=== PATIENT | female | born 1950 | race Caucasian/White ===

== ENCOUNTER 2017-07-12 04:59 | Inpatient (IN) | payer OTHER ==
--- NOTE | 2017-06-20 11:11 | PAT Medication Instructions ---
Service Date Jun 20, 2017. Current Home Medication List Cholecalciferol (Vitamin D3), 1 CAP PO QAM Levothyroxine Sodium (Levothyroxine Sodium), 1 TAB PO QAM Multivitamin (Multivitamin), 1 TAB PO QAM Naproxen (Aleve), 220 MG PO DAILY PRN for Pain Omeprazole (Prilosec), 40 MG PO QAM Rosuvastatin Calcium (Crestor), 10 MG PO HS Medication Instructions For Your Scheduled Surgery - Hold the following medications 10 days prior to surgery per surgeon's instructions: Naproxen (Aleve), 220 MG PO DAILY PRN for Pain - Hold the following medications the morning of surgery: Cholecalciferol (Vitamin D3), 1 CAP PO QAM Multivitamin (Multivitamin), 1 TAB PO QAM - Take the following medications the morning of surgery with a sip of water OTHERWISE NOTHING TO EAT OR DRINK AFTER MIDNIGHT: Omeprazole (Prilosec), 40 MG PO QAM Levothyroxine Sodium (Levothyroxine Sodium), 1 TAB PO QAM Tylenol (as needed; up to 4 hours prior to surgery) - Take the following medications as scheduled the night before surgery: Rosuvastatin Calcium (Crestor), 10 MG PO HS Tylenol If you have any questions please call us at [phone] or [phone] or [phone]
[2017-06-20 12:12] LABS: BASO % 0.6 %; BASO ABS # 0.04 K/uL (0-0.2); COMPLETE YES; EOS % 1.1 %; HEMATOCRIT 40.4 % (37-47); IG% 0.2 %; LYMPH % 29.8 %; MEAN CELL VOLUME 88.8 fL (80-100); MEAN CORPUSCULAR HGB CONC 32.7 g/dl (32-36); MEAN PLATELET VOLUME 9.7 fL (7.4-10.4); MONO % 7.4 %; NEUT % 60.9 %; PLATELET COUNT 302 K/uL (130-400); RED BLOOD COUNT 4.55 M/uL (4.2-5.4); WHITE BLOOD COUNT 6.38 K/uL (4.8-10.8)
--- NOTE | 2017-06-20 12:13 | DIAGNOSTIC IMAGING REPORT ---
CHEST 2 VIEWS ROUTINE CLINICAL HISTORY: 66 years-old Female presenting with preoperative. TECHNIQUE: PA and lateral views of the chest were obtained. COMPARISON: 04/26/2016. FINDINGS: Cardiomediastinal silhouette normal. Few punctate calcified granulomas may be present. Lungs and pleural spaces clear. Osseous structures normal. Upper abdomen normal. IMPRESSION: 1. No acute cardiopulmonary disease. Electronically signed by: Ignacio King M.D. 06/20/2017 12:12 PM Dictated Date/Time: 06/20/2017 12:11 PM
[2017-06-20 12:25] LABS: PROTHROMBIN TIME (PATIENT) 10.3 SECONDS (9.0-12.0)
[2017-06-20 13:27] LABS: BLOOD UREA NITROGEN 19 mg/dl (7-18); BUN/CREATININE RATIO 28.5 (10-20); C-REACTIVE PROTEIN < 0.29 mg/dl (0-0.29); CALCIUM 9.3 mg/dl (8.5-10.1); CARBON DIOXIDE 27 mmol/L (21-32); CHLORIDE 106 mmol/L (98-107); CREATININE 0.65 mg/dl (0.60-1.20); GLUCOSE 97 mg/dl (70-99); POTASSIUM 4.2 mmol/L (3.5-5.1); SODIUM 140 mmol/L (136-145)
--- NOTE | 2017-07-07 07:54 | HISTORY & PHYSICAL EXAMINATION ---
DATE OF ADMISSION: 07/12/2017 CHIEF COMPLAINT: Left hip pain. HISTORY OF PRESENT ILLNESS: The patient is a 66-year-old female little over a year out from a right hip replacement, presents for treatment of her left hip. She has got a fairly long several year history of increasing left hip pain and discomfort that has gotten significantly worse over the past year. She has difficulty walking any distance. She describes groin pain and thigh pain. She takes some anti-inflammatories which takes the edge off but that is about it. She would like to have her left hip replaced. PAST MEDICAL HISTORY: 1. Elevated cholesterol. 2. Hypothyroidism. 3. Gastroesophageal reflux disease. 4. Glaucoma. PAST SURGICAL HISTORY: Include: 1. Right hip replacement done May 2016. 2. Trabeculectomy of her eye in December 2016 for glaucoma. ALLERGIES: None. MEDICATIONS: Include rosuvastatin, levothyroxine, unspecified medicine for GERD, most likely omeprazole. SOCIAL HISTORY: A 66-year-old female. She is . She is from [place]. Does not smoke. FAMILY HISTORY: Noncontributory. REVIEW OF SYSTEMS: Negative for diabetes, neurologic problems, vascular problems, bleeding disorders. Denies any chest pain, no shortness of breath. No history of DVT or PE. PHYSICAL EXAMINATION: GENERAL: Reveals a healthy pleasant elderly female. She looks to be in reasonably good health. HEAD, EYES, EARS, NOSE, AND THROAT EXAMINATION: Benign. NECK: Supple. No lymphadenopathy. LUNGS: Clear to auscultation. HEART: Has a regular rate and rhythm. ABDOMEN: Soft, nontender, nondistended. EXTREMITY EXAMINATION: Grossly neurovascularly intact except as follows: Examination of the left hip reveals the patient walks with a significant limp. Leg lengths clinically appear pretty equal. She has pain with any type of hip motion. Internal rotation is neutral. External rotation to 20 degrees. Negative straight leg raise. X-RAYS: X-rays of the left hip reveal fairly concentric left hip arthritis. She has got cystic changes in the femoral head and acetabulum. She has got osteophytes around the acetabulum and femoral head area. ASSESSMENT: A 66-year-old white female little over a year out from right hip replacement, doing well with advanced left hip degenerative joint disease. She would like to have her left hip replaced. PLAN: We will take her to the operating room and do a left total hip replacement. The risks and benefits of this procedure were explained to the patient including but not limited to DVT, PE, , infection, neurological injury, vascular injury, bleeding problem, pain, limited range of motion, stiffness, failure to relieve symptoms, incomplete relief of symptoms, need for further surgery in the future, fracture, leg length inequality, nerve palsy, dislocation, need for blood transfusion, etc. The patient understands and desires to proceed. Informed consent was obtained. As far as discharge plans, she is planning to be discharged to home using [facility] home health program but her can assist in her care.
[~2017-07-12] VITALS: Ht 160 cm; Wt 78.2 kg
[2017-07-12] VITALS (17 sets, daily range): BP systolic 100–172; BP diastolic 62–82; PULSE 60–76; TEMP 36.4–37; O2SAT 95–97; Ht 160 cm; Wt 78.2 kg
[~2017-07-12 04:59] MED LIST: CHOL2000 PO; CRS/10 PO; LEVO137T3 PO; MULT-506 PO; NAPR1TAB9 PO; OMEP40CA PO
[2017-07-12] MEDS ORDERED: ACET-1256 PO (05:49)
[2017-07-12] MEDS ORDERED: LACTATED RINGER'S 1000ML 500 ML IV ONE (06:00)
[2017-07-12] MEDS ORDERED: LACTATED RINGER'S 1000ML 1,000 ML IV SCH (06:00)
[2017-07-12] MEDS ORDERED: ACETAMINOPHEN 500 MG TAB PO SCH (06:00)
[2017-07-12] MEDS ORDERED: METOCLOPRAMIDE HCL 10 MG TAB PO SCH (06:00)
[2017-07-12] MEDS ORDERED: TRANEXAMIC ACID INJ 1,000 MG in SODIUM CHLORIDE 0.9% 100ML 100 ML IV SCH ×2 (06:00→16:00)
[2017-07-12] MEDS ORDERED: CEFAZOLIN 2000 MG/60 ML D5W 60 ML IV SCH (06:00)
[2017-07-12] MEDS ORDERED: SCOPOLAMINE 1.5 MG TDSY TD SCH (06:00)
[2017-07-12] MEDS ORDERED: FAMOTIDINE 20 MG TAB PO SCH (06:00)
[2017-07-12] MEDS ORDERED: GABAPENTIN 300 MG CAP PO SCH (06:00)
[2017-07-12] MEDS ORDERED: LACTATED RINGER'S 1000ML IV SCH (06:00)
[2017-07-12] MEDS ORDERED: TRANEXAMIC ACID INJ 1,000 MG in SODIUM CHLORIDE 0.9% 100ML 100 ML TOP SCH (06:00)
[2017-07-12] MEDS ORDERED: BUPIVACAINE 0.5 % 5 MG/1 ML PF 10ML VIAL ONE (06:17)
[2017-07-12] MEDS ORDERED: BACITRACIN 50000 UNIT VIAL ONE (06:28)
[2017-07-12] MEDS ORDERED: BUPIVACAINE/EPINEPHRINE 0.5% MPF 1:200,000 30 ML VIAL ONE ×2 (06:28→08:10)
[2017-07-12] MEDS ORDERED: FENTANYL CITRATE INJ 50 MCG/1 ML 2 ML VIAL ONE (06:40)
[2017-07-12] MEDS ORDERED: MIDAZOLAM HCL 1 MG/ML 2ML VIAL ONE (06:40)
--- NOTE | 2017-07-12 06:49 | History & Physical Bridge Note ---
H&P Re-Evaluation Bridge Note: I have examined the patient, reviewed the History & Physical and in the interval since the performance of the History & Physical I have noted the following changes of clinical significance: No changes noted
[2017-07-12] MEDS ORDERED: MoRPHine SULFATE PF 1 MG/ML 10 ML AMP/VIAL ONE (07:02)
[2017-07-12] MEDS ORDERED: ONDANSETRON INJ 2 MG/ML 2 ML VIAL ONE (07:40)
[2017-07-12] MEDS ORDERED: DEXAMETHASONE SOD INJ 4 MG/ML VIAL ONE (07:40)
[2017-07-12] MEDS ORDERED: PROPOFOL IV EMULSION 10 MG/ML 20 ML VIAL IV ONE (07:40)
--- NOTE | 2017-07-12 08:35 | [facility] Post Operative Brief Note ---
Immediate Operative Summary Operative Date Jul 12, 2017. Pre-Operative Diagnosis Left Hip Advanced Degenerative Joint Disease Post-Operative Diagnosis Left Hip Advanced Degenerative Joint Disease Procedure(s) Performed Left Total Hip Arthroplasty--Uncemented Surgeon Dr. Henderson Oil Fire Specialist Surgeon(s) ELSIE Christianson Estimated Blood Loss 300 ml Findings Left Hip DJD Specimens A. Left Femoral Head Drains None Anesthesia Spinal Complication(s) None Disposition Recovery Room / PACU
[2017-07-12] MEDS ORDERED: BISACODYL 10 MG SUPP PR PRN (08:45)
[2017-07-12] MEDS ORDERED: ALUMINUM/MAGNESIUM/SIMETH (MAALOX MAX) 30 ML UDC PO PRN (08:45)
[2017-07-12] MEDS ORDERED: MAGNESIUM HYDROXIDE SUSP 30 ML UDC PO PRN (08:45)
[2017-07-12] MEDS ORDERED: SILVER SULFADIAZINE 1% CR 50 GM JAR EXT PRN (08:45)
[2017-07-12] MEDS: ASPIRIN 325 MG ECTAB PO SCH ×2 (09:00→20:35)
[2017-07-12] MEDS ORDERED: NON-FORMULARY MEDICATION (Omeprazole (Prilosec) 40 MG) PO SCH (09:00)
[2017-07-12] MEDS ORDERED: MULTIVITAMIN TAB PO SCH (09:00)
--- NOTE | 2017-07-12 09:00 | OPERATIVE REPORT ---
DATE OF OPERATION: 07/12/2017 PREOPERATIVE DIAGNOSIS: Left hip degenerative joint disease. POSTOPERATIVE DIAGNOSIS: Same. PROCEDURE PERFORMED: Left uncemented ceramic on highly cross-linked polyethylene total hip arthroplasty. SURGEON: Dr. Shyam Henderson. SLIVER FORMER: Artemio Dumont PA-C. COMPLICATIONS: None. ESTIMATED BLOOD LOSS: 300 mL. FLUID REPLACEMENT: 1400 mL crystalloid fluid replacement. ANESTHESIA: Spinal. DRAINS: None. SPECIMENS: Left femoral head sent for pathology. OPERATIVE INDICATIONS: The patient is a 66-year-old female who is now about a little over a year out from a right total hip replacement. She had a long history of left hip pain and discomfort. He describes it has gotten worse over the past year. X-rays revealed advanced hip DJD. The patient elected to proceed with operative treatment. OPERATIVE FINDINGS: Operative findings revealed advanced left hip DJD. She had grade 4 [id number] disease of the femoral head and acetabulum. She did have some osteophytes anteriorly around the acetabulum. Moderate size joint effusion. Some moderate synovitis. OPERATIVE IMPLANTS: Operative implants consisted of: 1. Biomet G7 size 50 mm acetabular shell. 2. An apex hole eliminator. 3. A 6.5 cancellous acetabular screws, 1 at 35 mm length and 1 at 20 mm in length. 4. Highly cross-linked polyethylene liner with a 50 mm outer diameter and 32 mm inner diameter. 5. A DePuy size 13.5 small stature AML femoral stem. 6. A +5/32 mm ceramic articular ball. OPERATIVE PROCEDURE: The patient was taken to the operating room, identified and placed on the operating table in supine position. All contact areas were appropriately padded. IV antibiotics were provided by the anesthesia team. A spinal anesthetic had been implemented in holding area. Wilson catheter was placed in sterile fashion. The patient was then placed in the right lateral decubitus position. An axillary roll was placed. [facility] was used for positioning. The left hip and leg were then prepped and draped in usual sterile fashion. Posterolateral approach to the left hip was then performed through a curvilinear incision centered over the greater trochanter. Sharp dissection was carried down through the subcutaneous tissues down to the level of the IT band and gluteal fascia. The IT band and gluteal fascia were then incised longitudinally in line with skin incision. The underlying greater trochanteric bursa was excised. The piriformis and external rotators were taken off the posterior aspect of the femur. Great care was taken throughout the procedure to protect the sciatic nerve at all times. Posterior capsulotomy was then performed leaving a large flap for later repair. Hip was internally rotated and dislocated. Femoral neck osteotomy cut was made with the final cut 12 mm above the lesser trochanter. Femoral head was removed and sent for pathology. The femur was retracted anteriorly. Attention was then drawn to the acetabulum. The acetabular labrum was excised. The pulvinar fat was excised. Sequential reaming of the acetabulum was then performed beginning with a size 43 and progressing up to 49. A 50 mm G7 acetabular shell was then placed in about 40 degrees of lateral opening and 20 degrees of anteversion. It was fixed with two 6.5 cancellous acetabular screws. A trial liner was placed. Some osteophytes were taken off anteriorly. Attention was then drawn to the femur. The proximal femur was entered with the cookie cutter followed by canal finder and lateralizing reamer. Sequential reaming of the femur was then performed beginning with a size 10 and progressing up to a 13. We got good chatter at 13. I then broached beginning with a size 10.5 small broach and progressing up to 13.5 small broach. Calcar reamer was used to smoothen off the calcar. The hip was then trialed and the +5 articular ball provided full stability and full extension and external rotation and flexion to 90 degrees, internal rotation to 50+ degrees. Leg lengths appeared appropriately. Soft tissue tension was appropriate. We elected to use these implants. All trial implants were removed. An apex hole eliminator was placed. A highly cross-linked polyethylene liner was placed. A DePuy 13.5 small stature AML femoral stem was then impacted in position. I did ream part way down the canal with the 13.5 reamer as it was extremely tight and I was not confident her bone was strong enough to withstand the force. Even having done this, I ended up leaving the implant about 2 mm proud as it was not advancing any further. I then placed a +5/32 mm ceramic articular ball on the taper. The hip was located and once again found to be stable. Attention was then drawn toward closing. The wound was irrigated with copious amounts of pulsatile lavage solution. I did inject locally with 60 mL of 0.5% Marcaine with epinephrine. The posterior capsule and external rotators were repaired through drill holes in the posterior trochanter with #2 Ti-Cron suture. The IT band and gluteal fascia were then closed with #1 PDS suture in running fashion. The subcutaneous tissues were then closed with 2 layers, the deep layer #1 Vicryl sutures, subcutaneous tissue with 2-0 Dexon suture in a buried interrupted fashion. Skin was closed skin jeffry. Leg was then cleaned and dried and a sterile dressing of Xeroform, 4 x 4s, sterile ABD pad and foam tape was applied. The patient then transferred to the recovery room in stable condition. The patient tolerated the procedure well with no complications. All needle and sponge counts were correct at the end of the operation. I attest to the content of the Intraoperative Record and any orders documented therein. Any exception s are noted below.
--- NOTE | 2017-07-12 09:17 | Anesthesiology Progress Note ---
Anesthesia Post Op Note Date & Time Jul 12, 2017 at 09:17 Vital Signs Pain Intensity: 0 Vital Signs Past 12 Hours Date Time Temp Pulse Resp B/P (MAP) Pulse Ox O2 Delivery O2 Flow Rate FiO2 07/12/17 08:56 81 16 07/12/17 08:56 80 16 100 07/12/17 08:55 129/61 07/12/17 08:51 86 12 100 07/12/17 08:51 86 12 07/12/17 08:50 118/66 07/12/17 08:46 88 13 07/12/17 08:46 89 13 100 07/12/17 08:45 125/67 07/12/17 08:41 94 17 07/12/17 08:41 91 17 99 07/12/17 08:40 131/64 07/12/17 08:36 95 16 07/12/17 08:36 36.5 94 16 127/64 100 Mask 10 07/12/17 08:36 94 16 127/64 100 07/12/17 06:23 36.9 76 20 172/82 96 Room Air Notes Mental Status: alert / awake / arousable, participated in evaluation Pt Amnestic to Procedure: Yes Nausea / Vomiting: adequately controlled Pain: adequately controlled Airway Patency, RR, SpO2: stable & adequate BP & HR: stable & adequate Hydration State: stable & adequate Anesthetic Complications: no major complications apparent
--- NOTE | 2017-07-12 09:27 | DIAGNOSTIC IMAGING REPORT ---
LEFT PELVIS/UNILATERAL HIP 1 VIEW CLINICAL HISTORY: 66 years-old Female presenting with postop total hip replacement. TECHNIQUE: Single frontal view of the pelvis and crosstable lateral view of the left hip were obtained. COMPARISON: 06/20/2017. FINDINGS: There has been interval total left hip arthroplasty. The femoral neck component immediately superior to the lesser trochanter does not appear flush with the subjacent cortex, with an intervening distance of 2 mm. No acute fracture is evident. Expected postoperative soft tissue emphysema and overlying skin jeffry. Postsurgical changes of right hip arthroplasty again noted. IMPRESSION: The femoral neck component medially superior to the lesser trochanter does not appear flush with the subjacent cortex. This could possibly be within the expected postsurgical normal range. Electronically signed by: Ignacio King M.D. 07/12/2017 9:25 AM Dictated Date/Time: 07/12/2017 9:23 AM
[2017-07-12] MEDS ORDERED: ATROPINE SULFATE 0.1 MG/ML 5ML SYR IV PRN (09:30)
[2017-07-12] MEDS ORDERED: HYDROmorphone INJ 2 MG/ML SYR/VIAL IV PRN (09:30)
[2017-07-12] MEDS ORDERED: ONDANSETRON INJ 2 MG/ML 2 ML VIAL IV PRN ×2 (09:30→23:30)
[2017-07-12] MEDS ORDERED: EpHEDrine SULFATE INJ 50 MG/ML AMP IV PRN ×2 (09:30→09:45)
[2017-07-12] MEDS ORDERED: PHENYLEPHRINE 100MCG/ML 5ML SYR IV PRN (09:30)
[2017-07-12] MEDS ORDERED: NALOXONE HCL INJ 1 MG in SODIUM CHLORIDE 0.9% 1000ML 1,000 ML IV PRN (09:37)
[2017-07-12] MEDS ORDERED: NALOXONE HCL INJ 0.08 MG in SYRINGE 1.8 ML IV PRN (09:37)
[2017-07-12] MEDS ORDERED: LACTATED RINGER'S 1000ML 500 ML IV PRN (09:37)
[2017-07-12] MEDS ORDERED: SODIUM CHLORIDE 0.9% 1000ML 1,000 ML IV PRN (09:37)
[2017-07-12] MEDS ORDERED: DiphenhydrAMINE HCL 50 MG/ML VIAL IV PRN (09:45)
[2017-07-12] MEDS ORDERED: MoRPHine SULFATE PF 1 MG/ML 10 ML AMP/VIAL EPI PRN (09:45)
[2017-07-12] MEDS ORDERED: NALBUPHINE HCL INJ 10 MG/ML AMP IV PRN (09:45)
[2017-07-12] MEDS ORDERED: NO NARCOTICS OR SEDATIVES SCH (09:45)
[2017-07-12] MEDS ORDERED: NALOXONE HCL 0.4 MG/1 ML VIAL/CARP IV PRN (09:45)
[2017-07-12] MEDS: D5W AND 1/2NSS + 20MEQ KCL 1,000 ML IV SCH ×2 (11:43→20:35)
[2017-07-12] MEDS: FERROUS GLUCONATE 324 MG TAB PO SCH ×2 (11:46→18:25)
[2017-07-12] MEDS: KETOROLAC TROMETHAMINE 15 MG/ML VIAL IV. SCH ×3 (11:46→23:40)
[2017-07-12] MEDS: ACETAMINOPHEN 500 MG TAB PO SCH ×2 (13:41→21:52)
--- NOTE | 2017-07-12 15:36 | PROGRESS NOTE ---
DATE: 07/12/2017 DATE: 07/12/2017 SUBJECTIVE: A 66-year-old white female postop from a left hip replacement. She is doing well. Not having any pain yet. No chest pain or shortness of breath. Not feeling dizzy or lightheaded. OBJECTIVE: VITAL SIGNS: Temperature 36.4. Vital signs stable. PHYSICAL EXAMINATION: GENERAL: Reveals a healthy, pleasant middle-aged female. She is sitting up in bed, looks pretty comfortable. LUNGS: Clear to auscultation. HEART: Has a regular rate and rhythm. ABDOMEN: Soft, nontender, nondistended. EXTREMITY EXAMINATION: Grossly neurovascularly intact except as follows: Examination of the left lower extremity reveals the leg to be well aligned. Dressing is clean, dry and intact. She can dorsiflex and plantarflex her foot appropriately. Hip is located. X-RAYS: X-rays of the left hip from the recovery room and reviewed. It shows left uncemented total hip arthroplasty. Components looked to be in good position. No signs of problems. ASSESSMENT: A 66-year-old white female postop from a left hip replacement, doing well. Pain is controlled. Hip is located. She is neurologically intact. PLAN: 1. DVT prophylaxis including thigh-high TEDs, SCDs, and aspirin twice a day. 2. PT/OT. Weightbearing as tolerated. Left total hip protocol. 3. Pain control. Doing well with current pain regimen. 4. IV antibiotics x24 hours. 5. Disposition. Plan to discharge to home with some home health once adequately recovered.
[2017-07-12] MEDS: CEFAZOLIN IV 1,000 MG in DEXTROSE 5% 50ML 50 ML IV SCH ×2 (15:37→23:39)
[2017-07-12] MEDS: CHECK SCOPOLAMINE PATCH PLACEMENT SCH ×2 (16:19→23:39)
[2017-07-12] MEDS: DOCUSATE SODIUM 100 MG CAP PO SCH (20:34)
[2017-07-12] MEDS: ROSUVASTATIN CALCIUM 10 MG TAB PO SCH (20:34)
[2017-07-12] MEDS: SENNA 8.6 MG TAB PO SCH (20:35)
[2017-07-12] MEDS ORDERED: DC INTRASPINAL MORPHINE SCH (23:30)
[2017-07-12] MEDS ORDERED: ZOLPIDEM TARTRATE 5 MG TAB PO PRN (23:30)
[2017-07-12] MEDS ORDERED: METOCLOPRAMIDE HCL INJ 5 MG/ML 2 ML VIAL IV PRN (23:30)
[2017-07-12] MEDS ORDERED: HYDROmorphone INJ 0.5 MG/0.5 ML SYR IV PRN (23:30)
[2017-07-12] MEDS ORDERED: TRAMADOL HCL 50 MG TAB PO PRN (23:30)
[2017-07-13] VITALS (8 sets, daily range): BP systolic 99–129; BP diastolic 62–77; PULSE 61–69; TEMP 36.5–36.9; O2SAT 92–98
[2017-07-13] MEDS: LEVOTHYROXINE 137 MCG TAB PO SCH (05:43)
[2017-07-13] MEDS: ACETAMINOPHEN 500 MG TAB PO SCH ×3 (05:43→21:47)
[2017-07-13] MEDS: KETOROLAC TROMETHAMINE 15 MG/ML VIAL IV. SCH ×4 (05:43→23:58)
[2017-07-13] MEDS: D5W AND 1/2NSS + 20MEQ KCL 1,000 ML IV SCH (05:43)
[2017-07-13 05:54] LABS: BASO % 0.1 %; BASO ABS # 0.01 K/uL (0-0.2); COMPLETE YES; EOS % 0.1 %; HEMATOCRIT 31.3 % (37-47); IG% 0.2 %; LYMPH ABS # 1.64 K/uL (1.2-3.4); MEAN CELL VOLUME 89.7 fL (80-100); MEAN CORPUSCULAR HEMOGLOBIN 28.9 pg (25-34); MEAN CORPUSCULAR HGB CONC 32.3 g/dl (32-36); MEAN PLATELET VOLUME 9.6 fL (7.4-10.4); MONO % 12.1 %; NEUT % 69.5 %; PLATELET COUNT 241 K/uL (130-400); RED BLOOD COUNT 3.49 M/uL (4.2-5.4); WHITE BLOOD COUNT 9.09 K/uL (4.8-10.8)
[2017-07-13 06:27] LABS: BUN/CREATININE RATIO 16.1 (10-20); CREATININE 0.78 mg/dl (0.60-1.20); POTASSIUM 4.4 mmol/L (3.5-5.1)
[2017-07-13] MEDS: CHECK SCOPOLAMINE PATCH PLACEMENT SCH ×3 (07:51→23:58)
[2017-07-13] MEDS ORDERED: ASPEC325 PO (08:01)
[2017-07-13] MEDS ORDERED: FRRG PO (08:01)
[2017-07-13] MEDS ORDERED: ULT50X PO (08:01)
[2017-07-13] MEDS ORDERED: ACET-24 PO (08:01)
[2017-07-13] MEDS: PANTOprazole SOD 40 MG TAB PO SCH (09:25)
[2017-07-13] MEDS: CHOLECALCIFEROL 1000 INTER.UNIT TAB PO SCH (09:26)
[2017-07-13] MEDS: DOCUSATE SODIUM 100 MG CAP PO SCH ×2 (09:26→21:11)
[2017-07-13] MEDS: ASPIRIN 325 MG ECTAB PO SCH ×2 (09:26→21:11)
[2017-07-13] MEDS: MULTIVITAMIN TAB PO SCH (09:26)
[2017-07-13] MEDS: FERROUS GLUCONATE 324 MG TAB PO SCH ×3 (09:27→18:15)
--- NOTE | 2017-07-13 09:45 | PROGRESS NOTE ---
DATE: 07/13/2017 SUBJECTIVE: 66-year-old white female postop day 1 from a left total hip replacement. She is doing well. Denies any significant pain. No chest pain or shortness of breath. Not feeling dizzy or lightheaded. OBJECTIVE: VITAL SIGNS: Temperature 36.7. Vital signs stable. PHYSICAL EXAMINATION: GENERAL: Reveals a healthy pleasant elderly female. She was going from the bathroom back to her bed when I visited with her this morning. LUNGS: Clear to auscultation. HEART: Regular rate and rhythm. ABDOMEN: Soft, nontender, nondistended. EXTREMITIES: Grossly neurovascularly intact except as follows: Examination of the left lower extremity reveals the dressing to be clean, dry and intact. Hip is located. Minimal pain with hip motion. She is neurologically intact. LABORATORY DATA: Hemoglobin 10.1, hematocrit 31.3. Electrolytes are stable. ASSESSMENT: 66-year-old white female postop day 1 from left total hip placement, doing well. Pain is controlled. She is neurologically intact. Hip is located. She is anemic without symptoms. PLAN: 1. DVT prophylaxis including thigh-high TEDs, SCDs, and aspirin twice a day. 2. PT/OT. Weightbearing as tolerated. Left total hip protocol. 3. Pain control, doing well with current pain regimen. 4. Anemia. Currently, asymptomatic. Will continue iron supplementation. 5. Disposition: She is planning to be discharged to home with some home health once adequately recovered.
--- NOTE | 2017-07-13 09:54 | Discharge Instructions ---
Discharge Instructions Date of Service Jul 13, 2017. Admission Reason for Admission: Left Hip Degenerative Joint Disease Discharge Discharge Diagnosis / Problem: Left Hip Replacement Discharge Goals Goal(s): Decrease discomfort, Improve function, Increase independence, Improve disease control, Therapeutic intervention Activity Recommendations Activity Limitations: per Instructions/Follow-up section (Total Hip PRecautions ) Weightbearing Status: Left weightbearing . Instructions / Follow-Up Instructions / Follow-Up ACTIVITY RECOMMENDATIONS: Physical Therapy: * Aggressive physical therapy is not usually needed. You will learn to take care of yourself safely and walk. * Follow the "Hip Precautions Instructions." * In some cases, the foster care social worker at the hospital will arrange to have a therapist come to your house for the first couple of weeks to help you learn these skills. * You need to practice on your own or with the help of a family member as needed. * When you learn these skills, most of the therapy can be done on your own. Home Exercise: * You were shown a series of exercises in the hospital. Do these exercises three to four times each day including the exercises you were shown in physical therapy. Walking: * Get up and walk several times each day. For the first four weeks, try not to stand or walk for more than one hour at a time. If you do stand or walk for more than one hour, you will not hurt anything, but your leg will likely swell. * As you feel comfortable, you may change from the walker or crutches to a cane and then to independent walking. MEDICATIONS: New Medicine: * You will likely be taking one or more of these medicines: 1. Tramadol - Take, as directed, when you need it, every four to six hours to control your pain. 2. Iron Sulfate - Take three times each day for the month after surgery to help you replace the blood lost during surgery. 3. Aspirin - Thins your blood to lessen the chance of forming a blood clot. * The most common side effects of pain medicine and iron are nausea and constipation. If nausea or constipation is too much of a problem or if you have any questions about your new medicines or doses, call [facility] at [phone]. We will try to help you manage these issues. VERY IMPORTANT TO READ AND REVIEW" Pain: * The immediate post-operative period after hip replacement surgery is often quite painful. * You are given a prescription for pain medicine. You should take it, as directed, when you need it, especially before physical therapy and before going to bed. Pain that interferes with sleep is very common and can last several months. * You will likely need pain medicine for the first two to four weeks. It will not stop all of the pain. The pain will lessen and as you feel better, you may change to milder pain medicine such as Tylenol. * The most common side effects of pain medicine are nausea and constipation, so don't take more than you need. SPECIAL CARE INSTRUCTIONS: TEDs/Elastic Stockings: * The white elastic stockings help limit swelling and prevent blood clots from forming in your legs. The more you wear them, the more they work. * Wear them for six weeks. Prevention of Infection: * Take antibiotics one hour before any dental cleaning, dental work, urological procedure, gastrointestinal procedure or any invasive surgery in order to prevent your new joint from getting infected. * You may get the antibiotics from the doctor performing the procedure or you may call our office at before and we will call in a prescription to the pharmacy of your choice. Things to Watch For: * Drainage from the incision site that occurs more than one week after your surgery. * Severely increased leg pain or swelling. * Increased redness at the incision site. * Fever above 102 degrees Fahrenheit. * Unusual chest pain or shortness of breath. * Unusual pain or burning with urination. Call [facility] at with any of the above problems or if you have any questions about your medicines or recovery. FOLLOW UP VISIT: Make an appointment to see your doctor for approximately two weeks after surgery for a progress check and staple removal by calling the office at . Current Hospital Diet Patient's current hospital diet: Regular Diet Discharge Diet Recommended Diet: Regular Diet Procedures Procedures Performed: Left Total Hip Arthroplasty--Uncemented Pending Studies Studies pending at discharge: no Medical Emergencies . Who to Call and When: Medical Emergencies: If at any time you feel your situation is an emergency, please call [phone] immediately. . Non-Emergent Contact Non-Emergency issues call your: Surgeon . "Provider Documentation" section prepared by Shyam Henderson. . VTE Core Measure Inpt VTE Proph given/why not?: Other Anticoagulation, T.E.D. Stockings, SCD's
--- NOTE | 2017-07-13 10:11 | Anesthesiology Progress Note ---
Anesthesia Post Op Note Date & Time Jul 13, 2017 at 10:10 Vital Signs Pain Intensity: 0.0 Vital Signs Past 12 Hours Date Time Temp Pulse Resp B/P (MAP) Pulse Ox O2 Delivery O2 Flow Rate FiO2 07/13/17 07:58 36.7 66 16 99/62 (74) 92 Room Air 07/13/17 07:15 Room Air 07/13/17 03:51 95 Room Air 07/13/17 03:40 36.9 61 16 105/66 (79) 98 Nasal Cannula 2.0 07/12/17 23:40 Nasal Cannula 2.0 07/12/17 23:25 36.9 60 16 100/62 (75) 97 Nasal Cannula 2.0 07/12/17 23:08 14 97 Notes Mental Status: alert / awake / arousable, participated in evaluation Pt Amnestic to Procedure: Yes Nausea / Vomiting: adequately controlled Pain: adequately controlled Airway Patency, RR, SpO2: stable & adequate BP & HR: stable & adequate Hydration State: stable & adequate Neuraxial Anesthesia: was administered, sensory block resolved Anesthetic Complications: no major complications apparent
[2017-07-13] MEDS: SENNA 8.6 MG TAB PO SCH (21:11)
[2017-07-13] MEDS: ROSUVASTATIN CALCIUM 10 MG TAB PO SCH (21:11)
[2017-07-14] MEDS: KETOROLAC TROMETHAMINE 15 MG/ML VIAL IV. SCH (05:28)
[2017-07-14] MEDS: ACETAMINOPHEN 500 MG TAB PO SCH (05:28)
[2017-07-14] MEDS: LEVOTHYROXINE 137 MCG TAB PO SCH (05:28)
[2017-07-14 07:00] VITALS: BP 111/69; PULSE 71; TEMP 36.4; O2SAT 94
--- NOTE | 2017-07-14 07:38 | PROGRESS NOTE ---
DATE: 07/14/2017 SUBJECTIVE: 66-year-old white female postop day 2 from left total hip replacement. She is doing well. She denies any significant pain. No chest pain or shortness of breath. Not feeling dizzy or lightheaded. OBJECTIVE: VITAL SIGNS: Temperature 36.5. Vital signs stable. PHYSICAL EXAMINATION: GENERAL: Reveals a healthy, pleasant middle-aged female. She is lying in bed and looks comfortable. EXTREMITIES: Examination of left hip reveals the wound to be clean, dry and intact. Thigh is soft and supple. Hip is located. NEUROLOGIC: She is neurologically intact. ASSESSMENT: 66-year-old white female postop day 2 from left total hip replacement, doing well. Pain is very well controlled. PLAN: 1. DVT prophylaxis including thigh-high TEDs, SCDs, and aspirin twice a day. 2. PT/OT. Weightbearing as tolerated. Left total hip protocol. 3. Pain control. Doing well with current pain regimen. Really reporting no pain. 4. Disposition: Plan to discharge to home with home health later today.
[2017-07-14] MEDS: CHECK SCOPOLAMINE PATCH PLACEMENT SCH (07:52)
[2017-07-14] MEDS: ASPIRIN 325 MG ECTAB PO SCH (09:11)
[2017-07-14] MEDS: CHOLECALCIFEROL 1000 INTER.UNIT TAB PO SCH (09:11)
[2017-07-14] MEDS: MULTIVITAMIN TAB PO SCH (09:11)
[2017-07-14] MEDS: FERROUS GLUCONATE 324 MG TAB PO SCH (09:12)
[2017-07-14] MEDS: DOCUSATE SODIUM 100 MG CAP PO SCH (09:12)
[2017-07-14] MEDS: PANTOprazole SOD 40 MG TAB PO SCH (09:13)
[2017-07-14 09:33] VITALS: BP 111/69; PULSE 71; TEMP 36.4; O2SAT 94
--- NOTE | 2017-07-21 00:07 | DISCHARGE SUMMARY ---
ADMITTING PHYSICIAN AND SURGEON: Dr. Henderson. ADMITTING DIAGNOSIS: Left hip degenerative joint disease. SURGERY PERFORMED: Left total hip arthroplasty. SECONDARY DIAGNOSES: Elevated cholesterol, hypothyroidism, gastroesophageal reflux disease, glaucoma. CONSULTS: None obtained. HISTORY AND PHYSICAL EXAMINATION: Well documented in the patient's chart. HOSPITAL COURSE: The patient was admitted on 07/12/2017 underwent total hip arthroplasty, tolerated the procedure well. There were no complications. She was transferred to the PACU postoperatively and later to the orthopedic floor for further care. She was given Ancef for antibiotic prophylaxis, JAMEL stockings, SCDs and aspirin for DVT prophylaxis. Hemoglobin, hematocrit and vital signs were monitored during her hospital stay and remained stable. She developed some mild postoperative anemia, did not require any blood transfusions. There were no complications. By postoperative day 2, she was tolerating a general diet, pain was controlled with oral pain medicine. She was participating in physical therapy and had no signs or symptoms of deep vein thrombosis. On postop day 2, she was discharged home and set up with home health services. She was given printed discharge instructions including new prescriptions for extra strength Tylenol, aspirin 325 mg b.i.d., an iron supplement and tramadol. Continue her home medications with the exception of her home dose of Tylenol. Continue physical therapy, weightbearing as tolerated, JAMEL stockings. Follow up in 10-12 days or sooner if there are any problems or concerns.
== END 2017-07-14 11:12 | disposition home health service (06) | DRG 470 ==
LOC: C.ACU 04:59 → C.3E 06:35 → ENRESERV 09:42
PROVIDERS: ADMIT Orthopaedic Surgery Sports Medicine; ATTEND Orthopaedic Surgery Sports Medicine
PROC: 0SRB04A Replacement of Left Hip Joint with Ceramic on Polyethylene Synthetic Substitute, Uncemented, Open Approach (ICD-10-PCS; principal; 2017-07-12 07:00)
DX: M16.12 Unilateral primary osteoarthritis, left hip (principal); D64.9 Anemia, unspecified; E78.00 Pure hypercholesterolemia, unspecified; E03.9 Hypothyroidism, unspecified; K21.9 Gastro-esophageal reflux disease without esophagitis; H40.9 Unspecified glaucoma; Z96.641 Presence of right artificial hip joint; Z79.899 Other long term (current) drug therapy

== ENCOUNTER → 2017-11-14 | Outpatient (CLI) | payer OTHER ==
[~2017-11-14] MED LIST changes: +ACET-24 PO; +ASPEC325 PO; +FRRG PO; +ULT50X PO
--- NOTE | 2017-11-14 14:48 | MAMMOGRAPHY REPORT ---
UNILATERAL RIGHT DIGITAL DIAGNOSTIC MAMMOGRAM TOMOSYNTHESIS WITH CAD: 11/14/2017 CLINICAL HISTORY: 67-year-old woman presents for follow-up in the right breast. She was initially ca lled back from screen for a focal asymmetry in the upper outer middle one third of the breast and fou nd to have an intramammary lymph node in the 10:00 right breast on ultrasound which was thought to co rrelate with the mammographic finding. TECHNIQUE: Right breast tomosynthesis in addition to standard 2D mammography was performed. Current pravin adame was also evaluated with a Computer Aided Detection (CAD) system. COMPARISON: Comparison is made to exams dated: 04/07/2017 ultrasound, 04/07/2017 mammogram, 03/22/2017 ma mmogram - [facility], 03/19/2016 mammogram, 03/11/2015 mammogram, and 10/08/2013 mammo gram - [facility]. BREAST COMPOSITION: There are scattered areas of fibroglandular density in the right breast. FINDINGS: The previously observed 8 mm focal asymmetry in the upper outer middle one third of the rig ht breast is decreased in size and conspicuity comparing to the prior mammograms from 03/22/2017. Cu rrently, the parenchymal pattern appears very similar to the 2011 and 2014 mammograms, likely represe nting the patient's baseline. There is stable nodular asymmetry in the superior middle to posterior right breast on the MLO view, which appears similar to the 2016, 2014 and 2011 mammograms, therefore likely benign. There are a few benign coarse calcifications and mild vascular calcification in the r ight breast. No new suspicious mass, architectural distortion or cluster of suspicious microcalcific ations is seen. IMPRESSION: ACR BI-RADS CATEGORY 2: BENIGN Decreased size and conspicuity of a focal asymmetry in the upper outer middle one third of the right breast, confirming benignity. The remainder of the right breast is stable compared to prior mammogra ms, without mammographic evidence of malignancy. Return to annual mammogram screening schedule is recommended (due February 2018). The patient has been ve rbally notified of the results. Approximately 10% of breast cancers are not detected with mammography. A negative mammographic report should not delay biopsy if a clinically suggestive mass is present. Nehal Avila M.D. ay/:11/14/2017 11:27:32 Adventure Therapist: Catalina Singh RT([place]encia)(M), [facility] letter sent: Normal 1/2 BI-RADS Code: ACR BI-RADS Category 2: Benign
== END | disposition home or self-care (01) ==
LOC: C.MAMM 10:10
PROVIDERS: ATTEND Nurse Practitioner Family
DX: R92.2 Inconclusive mammogram (principal); N63.10 Unspecified lump in the right breast, unspecified quadrant

== ENCOUNTER → 2018-03-23 | Outpatient (CLI) | payer OTHER ==
--- NOTE | 2018-03-24 15:16 | MAMMOGRAPHY REPORT ---
BILATERAL DIGITAL SCREENING MAMMOGRAM TOMOSYNTHESIS WITH CAD: 03/23/2018 CLINICAL HISTORY: Routine screening. Patient has no complaints. TECHNIQUE: Breast tomosynthesis in addition to standard 2D mammography was performed. Current study was also evaluated with a Computer Aided Detection (CAD) system. COMPARISON: Comparison is made to exams dated: 11/14/2017 mammogram, 04/07/2017 ultrasound, 04/07/2017 ma mmogram, 03/22/2017 mammogram - [facility], 03/19/2016 mammogram, and 03/11/2015 mammo gram - [facility]. BREAST COMPOSITION: There are scattered areas of fibroglandular density in both breasts. FINDINGS: No suspicious masses, calcifications, or areas of architectural distortion are noted in ei ther breast. There has been no significant interval change compared to prior exams. Bilateral nodula rity and scattered bilateral benign-appearing calcifications are not significantly changed. IMPRESSION: ACR BI-RADS CATEGORY 2: BENIGN There is no mammographic evidence of malignancy. A 1 year screening mammogram is recommended. The pa tient will receive written notification of the results. Approximately 10% of breast cancers are not detected with mammography. A negative mammographic report should not delay biopsy if a clinically suggestive mass is present. Keena Zuleta M.D. /:03/23/2018 16:25:08 Board Handler: Catalina KELLER([place])([place]), [facility] letter sent: Normal 1/2 BI-RADS Code: ACR BI-RADS Category 2: Benign
== END | disposition home or self-care (01) ==
LOC: C.MAMM 09:13
PROVIDERS: ATTEND Nurse Practitioner Family
DX: Z12.31 Encounter for screening mammogram for malignant neoplasm of breast (principal)